=== PATIENT | female | born 2000 | race Caucasian/White ===

== ENCOUNTER 2024-06-25 18:19 | Emergency (ER) | payer BC, MEDICAID ==
[~2024-06-25] VITALS: Ht 154.9 cm; Wt 104.5 kg
[2024-06-25 19:27] LABS: BASO % 0.3 % (0.0-1.0); EOS # 0.1 10^3/uL (0.0-0.5); EOS % 0.4 % (0.0-3.0); HEMATOCRIT 40.8 % (36.0-47.0); HEMOGLOBIN 12.9 g/dl (12.0-15.5); LYMPH # 2.2 10^3/uL (1.5-5.0); MEAN CORPUSCULAR HGB CONC 31.6 g/dl (32.0-36.5); MEAN CORPUSCULAR VOLUME 85.4 fl (80.0-96.0); MONO # 0.9 10^3/uL (0.0-0.8); MONO % 6.6 % (2.0-8.0); NEUTROPHILS # 9.8 10^3/uL (1.5-8.5); NEUTROPHILS % 75.3 % (36.0-66.0); PLATELET COUNT, AUTOMATED 389 10^3/uL (150-450); RED BLOOD COUNT 4.78 10^6/uL (4.00-5.40)
[2024-06-25] MEDS ORDERED: ISOVUE-370 76% 100ML VIAL As Ordered ONE (19:27)
[2024-06-25 19:49] LABS: LIPASE 41 U/L (12-53)
[2024-06-25 19:51] LABS: ALBUMIN 3.8 G/DL (3.2-5.2); ALKALINE PHOSPHATASE 83 U/L (46-116); ALT/SGPT 19 U/L (7.0-40); AST/SGOT 12 U/L (<34); BILIRUBIN,DIRECT 0.2 MG/DL (<0.4); BILIRUBIN,TOTAL 0.5 MG/DL (0.3-1.2); HCG, SERUM QUANTITATIVE < 2.6 MIU/ML (<4.2); TOTAL PROTEIN 7.6 G/DL (5.7-8.2)
[2024-06-25 19:55] VITALS: TEMP 98.3
[2024-06-25] MEDS: ONDANSETRON 4MG 2ML VIAL IV ONE (20:07)
[2024-06-25] MEDS: KETOROLAC 30 MG/ML 1ML VIAL IV ONE (20:08)
[2024-06-25] MEDS ORDERED: IBUP-1022 PO (20:36)
[2024-06-25 21:03] VITALS: BP 115/62; O2SAT 100
[2024-06-26] MEDS ORDERED: LEVO1TAB40 PO (22:14)
== END 2024-06-25 21:05 | disposition home or self-care (01) ==
LOC: M ED 18:19
DX: I88.0 Nonspecific mesenteric lymphadenitis (principal); J45.909 Unspecified asthma, uncomplicated; F17.210 Nicotine dependence, cigarettes, uncomplicated; F10.10 Alcohol abuse, uncomplicated; Z79.1 Long term (current) use of non-steroidal anti-inflammatories (NSAID); Z79.899 Other long term (current) drug therapy
CPT/HCPCS: 74177; 80047; 80076; 81001; 83690; 84702; 85025; 87086; 96374; 96375; 99284; J1885; J2405; Q9967

== ENCOUNTER 2024-06-26 20:07 | Emergency (ER) | payer BC, MEDICAID ==
[~2024-06-26] VITALS: Ht 154.9 cm; Wt 118.8 kg
[~2024-06-26 20:07] MED LIST: IBUP-1022 PO
[2024-06-26 20:09] VITALS: BP 125/78; TEMP 97.4; O2SAT 97
[2024-06-26 21:37] LABS: Trichomonas vaginalis (AMP) NOT DETECTED (NEGATIVE)
[2024-06-26 22:01] LABS: GC DNA AMPLIFICATION NEGATIVE (NEGATIVE)
[2024-06-26] MEDS ORDERED: LEVO1TAB40 PO (22:14)
[2024-06-26] MEDS: LevoFLOXacin 750 MG TABLET PO ONE (22:20)
== END 2024-06-26 22:26 | disposition home or self-care (01) ==
LOC: M ED 20:07
DX: N39.0 Urinary tract infection, site not specified (principal); Z79.1 Long term (current) use of non-steroidal anti-inflammatories (NSAID); Z79.899 Other long term (current) drug therapy

== ENCOUNTER 2025-03-24 23:57 | Emergency (ER) | payer MEDICAID ==
[~2025-03-24] VITALS: Ht 157.5 cm; Wt 119.2 kg
[~2025-03-24 23:57] MED LIST changes: +LEVO1TAB40 PO; +ONDA-282 PO
[2025-03-25 00:01] VITALS: BP 123/60; TEMP 98.1; O2SAT 100
== END 2025-03-25 00:20 | disposition left against medical advice (07) ==
LOC: M ED 23:57
DX: Z53.21 Procedure and treatment not carried out due to patient leaving prior to being seen by health care provider (principal)

== ENCOUNTER 2025-05-24 21:54 | Emergency (ER) | payer MEDICAID ==
[~2025-05-24] VITALS: Ht 157.5 cm; Wt 98.2 kg
[~2025-05-24 21:54] MED LIST changes: -IBUP-1022 PO; +IBUP600T42 PO
[2025-05-24 22:43] LABS: BASO # 0.0 10^3/uL (0.0-0.2); BASO % 0.2 % (0.0-1.0); EOS # 0.1 10^3/uL (0.0-0.5); EOS % 0.7 % (0.0-3.0); LYMPH # 2.5 10^3/uL (1.5-5.0); LYMPH % 23.3 % (24.0-44.0); MONO # 0.7 10^3/uL (0.0-0.8); MONO % 6.1 % (2.0-8.0); NEUTROPHILS # 7.5 10^3/uL (1.5-8.5); NEUTROPHILS % 69.5 % (36.0-66.0); PLATELET COUNT, AUTOMATED 269 10^3/uL (150-450)
[2025-05-24 23:05] LABS: CALCIUM LEVEL 8.9 MG/DL (8.5-10.1); CARBON DIOXIDE LEVEL 24 MMOL/L (20-31); CHLORIDE LEVEL 107 MMOL/L (98-107); CREATININE FOR GFR 0.62 MG/DL (0.55-1.30); GLOMERULAR FILTRATION RATE > 90.0 (>60); POTASSIUM SERUM 4.4 MMOL/L (3.5-5.1); SODIUM LEVEL 141 MMOL/L (136-145)
[2025-05-24 23:55] VITALS: BP 110/59; TEMP 97.8; O2SAT 99
== END 2025-05-25 00:45 | disposition left against medical advice (07) ==
LOC: M ED 21:54
DX: Z53.21 Procedure and treatment not carried out due to patient leaving prior to being seen by health care provider (principal)

== ENCOUNTER 2025-06-07 23:54 | Emergency (ER) | payer MEDICAID ==
[~2025-06-07] VITALS: Ht 157.5 cm; Wt 118.6 kg
[2025-06-08 00:50] LABS: BASO # 0.0 10^3/uL (0.0-0.2); BASO % 0.3 % (0.0-1.0); EOS # 0.1 10^3/uL (0.0-0.5); EOS % 1.1 % (0.0-3.0); LYMPH # 2.6 10^3/uL (1.5-5.0); LYMPH % 23.7 % (24.0-44.0); MONO # 0.7 10^3/uL (0.0-0.8); MONO % 6.1 % (2.0-8.0); NEUTROPHILS # 7.5 10^3/uL (1.5-8.5); NEUTROPHILS % 68.4 % (36.0-66.0); PLATELET COUNT, AUTOMATED 305 10^3/uL (150-450)
[2025-06-08 01:15] LABS: CALCIUM LEVEL 8.9 MG/DL (8.5-10.1); CARBON DIOXIDE LEVEL 25 MMOL/L (20-31); CHLORIDE LEVEL 107 MMOL/L (98-107); CK-MB VALUE MASS < 1.0 NG/ML (<3.6); CPK CREATINE PHOSPHOKINASE 40 U/L (34-145); CREATININE FOR GFR 0.67 MG/DL (0.55-1.30); GLOMERULAR FILTRATION RATE > 90.0 (>60); POTASSIUM SERUM 3.8 MMOL/L (3.5-5.1); SODIUM LEVEL 138 MMOL/L (136-145)
[2025-06-08 01:18] LABS: HCG, SERUM QUALITATIVE POSITIVE (NEGATIVE)
[2025-06-08 06:05] LABS: KETONE, URINE AUTO RFX NEGATIVE (NEGATIVE); MUCUS, URINE RFX SMALL (NEGATIVE); NITRITE, URINE AUTO RFX NEGATIVE (NEGATIVE); RBC, URINE AUTO RFX 1 /HPF (0-3); SQUAM EPITHELIAL CELL UR AURFX 22 /HPF (0-6); WBC, URINE AUTO RFX 9 /HPF (0-3)
[2025-06-08 06:06] LABS: LEUKOCYTE ESTERASE UR AUTO RFX 2+ (NEGATIVE)
[2025-06-08] MEDS: NS (Normal Saline) 0.9% 1,000 ML IV ONE (07:10)
[2025-06-08] MEDS ORDERED: HOME MED LIST COMPLETE! XX SCH (08:45)
[2025-06-08 09:00] VITALS: BP 95/59; TEMP 99; O2SAT 97
[2025-06-08] MEDS ORDERED: NITR-67 PO (09:05)
[2025-06-08] MEDS: NITROFURANTOIN 100 MG CAP PO ONE (09:14)
== END 2025-06-08 09:25 | disposition home or self-care (01) ==
LOC: M ED 23:54
DX: O23.42 Unspecified infection of urinary tract in pregnancy, second trimester (principal); O26.812 Pregnancy related exhaustion and fatigue, second trimester; Z3A.17 17 weeks gestation of pregnancy; Z79.2 Long term (current) use of antibiotics

== ENCOUNTER → 2025-06-09 | Outpatient (REF) | payer MEDICAID ==
[~2025-06-09] MED LIST changes: +NITR-67 PO
== END ==
LOC: M PLALAB 08:15
PROVIDERS: ATTEND Student in an Organized Health Care Education/Training Program
DX: Z34.80 Encounter for supervision of other normal pregnancy, unspecified trimester (principal); Z53.9 Procedure and treatment not carried out, unspecified reason

== ENCOUNTER → 2025-06-09 | Outpatient (CLI) | payer MEDICAID ==
[2025-06-09 11:11] LABS: PLATELET COUNT, AUTOMATED 287 10^3/uL (150-450)
[2025-06-09 11:55] LABS: Trichomonas vaginalis (AMP) NOT DETECTED (NEGATIVE)
[2025-06-09 12:06] LABS: HIV 1&2 SCREEN NEGATIVE (NEGATIVE)
[2025-06-09 12:14] LABS: HEPATITIS C VIRUS ABY INDEX 0.02 INDEX (<0.8)
[2025-06-09 12:19] LABS: GC DNA AMPLIFICATION NEGATIVE (NEGATIVE)
== END ==
LOC: M PLALAB 08:59
PROVIDERS: ATTEND Student in an Organized Health Care Education/Training Program
DX: Z34.80 Encounter for supervision of other normal pregnancy, unspecified trimester (principal)

== ENCOUNTER 2025-07-06 16:38 | Outpatient (CLI) | payer MEDICAID ==
[~2025-07-06] VITALS: Ht 157.5 cm; Wt 119.0 kg
[2025-07-06 17:08] VITALS: BP 107/57; O2SAT 96
[2025-07-06 17:09] VITALS: O2SAT 95
[2025-07-06 17:10] VITALS: O2SAT 97
[2025-07-06] MEDS ORDERED: PRENTAB9 PO (17:12)
[2025-07-06] MEDS ORDERED: ACET-897 PO (17:14)
[2025-07-06] MEDS ORDERED: HOME MED LIST COMPLETE! XX SCH (17:15)
== END 2025-07-06 17:45 | disposition home or self-care (01) ==
LOC: M LDO 16:38
PROVIDERS: ATTEND Advanced Practice Midwife
DX: O9A.312 Physical abuse complicating pregnancy, second trimester (principal); O99.212 Obesity complicating pregnancy, second trimester; O09.72 Supervision of high risk pregnancy due to social problems, second trimester; O26.22 Pregnancy care for patient with recurrent pregnancy loss, second trimester; O34.211 Maternal care for low transverse scar from previous cesarean delivery; O99.332 Smoking (tobacco) complicating pregnancy, second trimester; F17.290 Nicotine dependence, other tobacco product, uncomplicated; Z3A.21 21 weeks gestation of pregnancy; Y92.9 Unspecified place or not applicable; Y93.9 Activity, unspecified; Y99.9 Unspecified external cause status

== ENCOUNTER 2025-07-28 09:32 | Outpatient (CLI) | payer MEDICAID ==
[~2025-07-28] VITALS: Ht 157.5 cm; Wt 120.2 kg
[~2025-07-28 09:32] MED LIST changes: +ACET-897 PO; +PRENTAB9 PO
[2025-07-28 09:52] VITALS: BP 100/64
[2025-07-28 11:35] VITALS: BP 121/61
== END 2025-07-28 12:05 | disposition home or self-care (01) ==
LOC: M LDO 09:32
PROVIDERS: ATTEND Obstetrics & Gynecology
DX: O26.892 Other specified pregnancy related conditions, second trimester (principal); O99.212 Obesity complicating pregnancy, second trimester; O99.332 Smoking (tobacco) complicating pregnancy, second trimester; O9A.312 Physical abuse complicating pregnancy, second trimester; O34.211 Maternal care for low transverse scar from previous cesarean delivery; E66.9 Obesity, unspecified; F17.290 Nicotine dependence, other tobacco product, uncomplicated; Z59.00 Homelessness unspecified; Z3A.24 24 weeks gestation of pregnancy
CPT/HCPCS: 59025; 76815; G0463

== ENCOUNTER → 2025-08-01 | Outpatient (CLI) | payer MEDICAID | LOC: M WHC 07:19 | PROVIDERS: ATTEND Student in an Organized Health Care Education/Training Program | DX: Z34.80 Encounter for supervision of other normal pregnancy, unspecified trimester (principal) ==

== ENCOUNTER → 2025-08-08 | Outpatient (CLI) | payer MEDICAID ==
[2025-08-08 19:42] LABS: Trichomonas vaginalis (AMP) NOT DETECTED (NEGATIVE)
[2025-08-08 20:06] LABS: GC DNA AMPLIFICATION NEGATIVE (NEGATIVE)
== END ==
LOC: M PLALAB 11:39
PROVIDERS: ATTEND Student in an Organized Health Care Education/Training Program
DX: Z34.80 Encounter for supervision of other normal pregnancy, unspecified trimester (principal)

== ENCOUNTER 2025-08-12 17:32 | Outpatient (CLI) | payer MEDICAID ==
[~2025-08-12] VITALS: Ht 157.5 cm; Wt 123.3 kg
[2025-08-12 17:58] VITALS: BP 110/60
[2025-08-12] MEDS ORDERED: HOME MED LIST COMPLETE! XX SCH (18:20)
== END 2025-08-12 20:02 | disposition home or self-care (01) ==
LOC: M LDO 17:32
PROVIDERS: ATTEND Advanced Practice Midwife
DX: O26.893 Other specified pregnancy related conditions, third trimester (principal); R42 Dizziness and giddiness; Z3A.26 26 weeks gestation of pregnancy

== ENCOUNTER → 2025-09-05 | Outpatient (REF) | payer MEDICAID | LOC: M SFHCWAGY 15:27 | PROVIDERS: ATTEND Obstetrics & Gynecology | DX: R30.0 Dysuria (principal) ==

== ENCOUNTER 2025-09-13 03:29 | Outpatient (CLI) | payer MEDICAID ==
[~2025-09-13] VITALS: Ht 157.5 cm; Wt 125.2 kg
[2025-09-13 03:44] VITALS: BP 131/66
[2025-09-13] MEDS ORDERED: HOME MED LIST COMPLETE! XX SCH (03:45)
[2025-09-13] MEDS: FLUCONAZOLE 50 MG TABLET PO ONE (06:06)
[2025-09-14 14:42] LABS: CANDIDA GLABRATA NAA NOT DETECTED (NOT DETECTED); TRICH VAG BY NAA NOT DETECTED (NOT DETECTED)
[2025-09-14 14:53] LABS: BVAB 2 NEGATIVE (NEGATIVE)
[2025-09-14 15:02] LABS: CHLAMYDIA TRACHOMATIS NAA NOT DETECTED (NOT DETECTED)
== END 2025-09-13 06:10 | disposition home or self-care (01) ==
LOC: M LDO 03:29
PROVIDERS: ATTEND Obstetrics & Gynecology
DX: O23.593 Infection of other part of genital tract in pregnancy, third trimester (principal); O34.211 Maternal care for low transverse scar from previous cesarean delivery; O99.213 Obesity complicating pregnancy, third trimester; O99.333 Smoking (tobacco) complicating pregnancy, third trimester; B37.9 Candidiasis, unspecified; E66.9 Obesity, unspecified; F17.210 Nicotine dependence, cigarettes, uncomplicated; Z3A.31 31 weeks gestation of pregnancy
CPT/HCPCS: 59025; 81513; 87481; 87591; 87661; G0463